=== PATIENT | male | born 1975 | race Caucasian/White ===

== ENCOUNTER → 2017-01-31 | Outpatient (CLI) | payer OTHER ==
[~2017-01-31] MED LIST: ADVIL200 M1 PO; BACTRIM DS TABL1 TAB PO; COLACE PO; FLEXERIL10 MG PO; HYDROCODON-ACE1 EAC7 PO; NORCO 10/325 TA1 TAB PO; VOLTAREN75 MG PO
--- NOTE | ~2017-01-31 | CT98 ---
[facility] A Service of [facility] RADIOLOGY TEXT RESULTS PATIENT: CHRIS LAWSON LOCATION: [facility] : 73 UNIT #: [id number] AGE: [address]: Gerber Wade MD SEX: M ORDER DR: [id number] [facility] [address] [place], [place] [address] [id number] O MR#: [id number] Acc #: [id number] NAME: CHRIS LAWSON : 1975 SEX: M STUDY DATE/TIME: 01/31/2017 8:33 UNIT: [facility] ROOM: STUDY DESCRIPTION: CT Lumbar Spine Wo Cont Attending Physician: Gerber Wade M.D. Referring Physician: Gerber Wade M.D. Ordering Physician: Gerber Wade M.D. Primary Care Physician: Manuel Steiner M.D. MEDICAL IMAGING REPORT This report is preliminary unless electronic signature is present EXAM CT lumbar spine INDICATION Low back pain for 3 months since surgery. Surgery 3 months ago. Second lumbar spine surgery per patient. TECHNIQUE This CT exam was performed with one or more of the following radiation dose reduction techniques: automatic exposure control, adjustment of mA and/or kV according to patient size, and iterative reconstruction. COMMENT CT of the lumbar spine performed in the axial plane without contrast followed by sagittal and coronal reconstructed images. Comparison is made to lumbar spine CT from 07/12/2016 obtained after myelogram. Since that study the patient has undergone fusion from L2-L4 with placement of bilateral 2, 3, 4 pedicle screws, vertical stabilization bars as well as intervertebral disc spacers at 2-3 and 3-4. Redemonstrated is the lower extent of spinal rods with a laminar hook at the L2 level. There is new posterior bone graft material L2-L4. There is metal artifact associated with the hardware. There is again straightening of the lumbar spine at the level of the original spinal rods to the level of L2. This is not changed. There is redemonstrated 6.0 mm anterolisthesis of L5 on S1 secondary to chronic-appearing L5 pars defects. This is not changed. There is also again demonstrated retrolisthesis of L4 on L5 about 4.0 mm in dimension, not changed. Chronic anterior wedging at L2-L3 again seen with multilevel endplate spondylosis. Schmorl's node formation and sclerosis partially redemonstrated at the L3 level. There does not appear to be fusion across the intervertebral disc spacers or bone graft material at this time but this is not expected given the relatively early imaging. [facility] A Service of [facility] RADIOLOGY TEXT RESULTS PATIENT: CHRIS LAWSON LOCATION: [facility] : 73 UNIT #: [id number] AGE: [address]: Gerber Wade MD SEX: M ORDER DR: At T11-12, metal artifact. No bony canal compromise. I believe the posterior elements are fused. No bony foraminal impingement. At T12-L1, posterior elements are fused. No bony canal or foraminal compromise. There is metal artifact. At L1-2, there is probably mild canal compromise related to facet hypertrophy and impingement by the laminar hook. I cannot assess for soft tissue canal compromise. There is no bony foraminal compromise. At L2-3, there is posterior postoperative change with posterior decompression and bone graft material. There is no bony canal stenosis. There is a small amount of bone within the inferior aspect of the left side 2-3 foramen with only left inferior bony foraminal impingement. At L3-4, posterior decompression bone graft material. No definite bony canal stenosis. There is mild bilateral bony foraminal narrowing. At L4-5, [id number] concentric disc osteophyte complex with [id number]-[id number] facet degenerative change. There is ligamentum flavum thickening and probably moderate canal stenosis. I suspect some component of disc protrusion/extrusion impinging upon the canal but this would be better delineated with an MRI. There is also bilateral foraminal impingement which is probably significant. At L5-S1, bilateral facet degenerative change present in addition to grade 1 anterolisthesis of 5 on 1 due to the pars defects. There is a broad posterior disc protrusion/extrusion with mild effacement of the anterior thecal sac. There is bilateral foraminal impingement. It is probably fairly severe but it would be better delineated with MRI since the soft tissue component is not well seen on the CT scan. No large posterior fluid collection is suspected. IMPRESSION 1. Extensive postoperative changes posteriorly. There has been interval posterior fusion L2-L4 with pedicle screws and vertical stabilization bars as well as placement of intervertebral disc spacers at 2-3 and 3-4 levels. No fusion is seen. No change in alignment on the preoperative exam. There does not appear to be bony canal compromise at the postoperative levels. There is no change in the postoperative changes to the lower thoracic and upper lumbar spine on comparison to prior. 2. Redemonstrated is grade 1 anterolisthesis of L5 on S1 secondary to bilateral L5 pars defects. This is chronic. No significant canal stenosis, but probably fairly severe foraminal impingement. 3. At the unoperated 4-5 level, combination of findings probably results in mild to moderate canal stenosis but soft tissues are not well delineated. I would suggest the patient be further evaluated with MRI if a candidate to better delineate the extent of soft tissue STS. [facility] A Service of [facility] RADIOLOGY TEXT RESULTS PATIENT: CHRIS LAWSON LOCATION: [facility] : 73 UNIT #: [id number] AGE: [address]: Gerber Wade MD SEX: M ORDER DR: canal and foraminal impingement. Dictated by... Luh Vang M.D. THIS IS AN ELECTRONICALLY VERIFIED REPORT Luh Vang M.D. at 01/31/2017 5:11 PM ANDIE/mary carmen TD: 01/31/2017 11:56 JOB #: [id number] MEDICAL IMAGING REPORT Page 1 of 1 COPY
== END | disposition home or self-care (01) ==
LOC: CCAT 08:05
DX: G89.18 Other acute postprocedural pain (principal); M43.17 Spondylolisthesis, lumbosacral region; Z98.1 Arthrodesis status
CPT/HCPCS: 72131